=== PATIENT | male | born 1950 | race Caucasian/White ===

== ENCOUNTER 2022-11-01 06:48 | Day surgery (SDC) | payer OTHER, BC ==
[2022-10-30 09:46] LABS: Potassium 4.1 mEq/L (3.5-5.1)
--- NOTE | 2022-10-30 18:25 | EKG ---
Test Date: 2022-10-30 Test Time: 08:27:41 Ship Laborer: RODRIGO MEASUREMENT RESULTS: Intervals: Rate: 62 NV: 150 QRSD: 98 QT: 396 QTc: 401 [place]: P: -25 NV: 150 QRS: 67 T: 3 INTERPRETIVE STATEMENTS: Normal sinus rhythm Nonspecific T wave abnormality Abnormal ECG No previous ECG available for comparison Electronically Signed On 10-30-22 18:24:32 CDT by Nayan Tan
[2022-11-01] MEDS: Ringers Lactate 1,000 ML IV ONE ×2 (07:10→07:53)
[2022-11-01] MEDS ORDERED: LIDOCAINE 1% MPF 5 ML VIAL ONE (07:55)
[2022-11-01] MEDS ORDERED: GLYCOPYRROLATE 0.2 MG/ML SYR ONE (07:55)
[2022-11-01] MEDS ORDERED: propofoL 200 MG/20 ML VIAL IV ONE (07:55)
[2022-11-01 09:25] VITALS: BP 101/68; TEMP 97.2; O2SAT 97
== END 2022-11-01 09:27 | disposition home or self-care (01) ==
LOC: OR 06:48
PROVIDERS: ATTEND Surgery
PROC: 0DBN8ZX Excision of Sigmoid Colon, Via Natural or Artificial Opening Endoscopic, Diagnostic (ICD-10-PCS; principal; 2022-11-01 08:00)
DX: Z12.11 Encounter for screening for malignant neoplasm of colon (principal); I10 Essential (primary) hypertension; K57.30 Diverticulosis of large intestine without perforation or abscess without bleeding; K64.8 Other hemorrhoids
CPT/HCPCS: 36415; 80048; 88305; 93005; J2001; J2704; J7120